=== PATIENT | male | born 1935 | race Caucasian/White ===

== ENCOUNTER 2016-10-20 12:13 | Emergency (ER) | payer MEDICARE, BC ==
--- NOTE | ~2016-10-20 | CT2 ---
[facility] A Service of [facility] & [facility] RADIOLOGY TEXT RESULTS PATIENT: BERTHA TREJO LOCATION: SED : 31 UNIT #: [id number] AGE: [address]: Cornel Love MD SEX: M ORDER DR: [id number] [place] [id number] E MR#: [id number] #: [id number] NAME: BERTHA TREJO. : 1935 SEX: M STUDY DATE/TIME: 10/20/2016 12:42 UNIT: SED ROOM: STUDY DESCRIPTION: CT Abd and Pelv W Cont Attending Physician: Cornel Love M.D. Ordering Physician: Cornel Love M.D. Primary Care Physician: Lake Oates M.D. MEDICAL IMAGING REPORT This report is preliminary unless electronic signature is present. EXAM CT abdomen and pelvis with IV contrast, 10/20/2016 COMPARISON August 12, 2014 INDICATION 80-year-old male with upper abdominal pain for 2 weeks, now getting worse. TECHNIQUE This CT exam was performed with one or more of the following radiation dose reduction techniques: automatic exposure control, adjustment of mA and/or kV according to patient size, and iterative reconstruction. FINDINGS Axial CT imaging of the abdomen and pelvis was performed after IV administration of 100 mL Isovue-370. Coronal and sagittal reformats were constructed. Diffuse osteopenia. Multilevel degenerative disc disease of the lumbar spine. No acute fractures or suspicious osseous lesions. Moderate to severe degenerative endplate change seen at L2-L3. Stable vertebral body height loss at L4. There is minimal grade 1 degenerative retrolisthesis of L2 on L3 and degenerative anterolisthesis grade 1 of L4 on L5. There is a moderate to large posterior disc protrusion at L4-L5. There is marked scoliosis of the lumbar spine with dextrocurvature centered at L2-L3. Calcified granuloma in the right middle lobe. Low density lesion measuring up to 1 cm in the left hepatic lobe with multiple other stable low-density lesions throughout the liver, most in keeping with benign cysts or hemangiomas. There are calcified granulomas in the liver and spleen. There are also tiny low-density lesions within the spleen which are too small to characterize and may reflect cysts or possibly noncalcified granulomas. Patient is post cholecystectomy. There is atrophy of the pancreas. Adrenal glands are unremarkable. Kidneys are STS. [facility] A Service of [facility] & [facility] RADIOLOGY TEXT RESULTS PATIENT: BERTHA TREJO LOCATION: [facility] [place] 33 UNIT #: [id number] AGE: [address]: Cornel Love MD SEX: M ORDER DR: within normal limits. There is nonspecific bilateral perinephric stranding, not significantly changed from August 12, 2014. There actually is an exophytic lesion extending from the mid pole of the left kidney with borderline density measuring up to 1.1 cm, stable from August 12, 2014 favoring a benign proteinaceous cyst. There is no hydronephrosis or hydroureter. No renal or ureteral calculi. There is prostatic enlargement with a transverse diameter of 5.1 cm. There is mild diffuse thickening of the urinary bladder wall, perhaps due to under distension or chronic bladder outlet obstruction. Correlation to exclude signs of an acute cystitis recommended. There is marked diverticulosis of the sigmoid colon. Appendix is normal. There is no evidence of bowel obstruction. No evidence of acute diverticulitis. No free fluid or pneumoperitoneum. No adenopathy in the abdomen or pelvis. There is normal caliber of the abdominal aorta. There are dense calcifications involving the origins of the celiac and superior mesenteric arteries as well as calcifications of the proximal renal arteries. There may be mild stenosis at the origin of superior mesenteric artery and evaluation for stenosis at the origin of the celiac artery is limited by bulky calcification. There is likely at least mild stenosis at the origin of the left renal artery which is patent distally and there is likely at least mild stenosis at the origin of the right renal artery which is also patent distally. Calcifications extend in the bilateral iliac arteries and femoral arteries. There is ectasia of the infrarenal abdominal aorta without aneurysm. IMPRESSION 1. No acute abnormality in the abdomen, pelvis or lower chest. 2. Patient is post cholecystectomy. 3. Degenerative changes of the lumbar spine, grossly stable from 2014. 4. Exophytic 1.1 cm density in the left kidney which is indeterminate based on its density but is stable from 2014 and favors a proteinaceous cyst. 5. Prostatic hypertrophy. There is thickening of the urinary bladder wall which is not significantly changed from 2015 favoring either under distension or possibly sequela of mild chronic bladder outlet obstruction.Regarding the bladder, correlation to exclude signs of acute cystitis is recommended which if thought to be less likely. 6. Diffuse arterial calcification of the abdomen and pelvis which are likely causing at least mild stenosis at the origins of the celiac, superior mesenteric and bilateral renal arteries. 7. Multiple low density lesions throughout the liver are stable from 2015 favoring either benign cysts or hemangiomas. Dictated by... Jaime Perera M.D. [facility] A Service of [facility] RADIOLOGY TEXT RESULTS PATIENT: BERTHA TREJO LOCATION: [facility] [place] : 33 UNIT #: [id number] AGE: [address]: Cornel Love MD SEX: M ORDER DR: THIS IS AN ELECTRONICALLY VERIFIED REPORT Jaime Perera M.D. at 10/24/2016 11:11 AM Gabino TD: 10/21/2016 04:39 JOB #: [id number] MEDICAL IMAGING REPORT Page 1 of 1
[2016-10-20 11:53] LABS: POC - CKMB <1.0 ng/mL (0.0-7.9); POC - MYOGLOBIN 94.8 ng/mL (0.0-169.0); POC - TROPONIN <0.05 ng/mL (<=0.05)
[2016-10-20 11:54] LABS: BASOPHIL% 0.4 % (0-2.5); EOSINOPHIL# 0.1 X10e3 (0-0.7); EOSINOPHIL% 2.4 % (0.0-7.0); HEMATOCRIT 35.7 % (38.0-50.0); HEMOGLOBIN 11.6 gm/dL (13.0-16.0); LYMPHOCYTE# 1.1 X10e3 (1.0-3.5); LYMPHOCYTE% 17.5 % (17.0-45.0); MEAN CELL VOLUME 88.3 FL (83-96); MEAN CORPUSCULAR HEMOGLOBIN 28.7 PG (28-34); MEAN CORPUSCULAR HGB CONC 32.5 g/dL (30-36); MONOCYTE# 0.6 X10e3 (0-1.0); NEUTROPHIL# 4.3 X10e3 (1.5-7.1); NEUTROPHIL% 69.7 % (40-75); PLATELET COUNT 204 X10e3 (140-420); RED BLOOD COUNT 4.04 X10e (3.90-5.60); RED CELL DISTRIBUTION WIDTH 15.3 % (11.0-15.5); WHITE BLOOD COUNT 6.2 X10e3 (4.0-10.5)
[2016-10-20 11:56] LABS: DIFF IND NO
[2016-10-20 12:10] LABS: ALBUMIN SERUM 3.7 g/dL (3.5-5.0); BILIRUBIN, DIRECT 0.2 mg/dL (0.0-0.2); BILIRUBIN,INDIRECT 0.8 mg/dL (0.0-0.9); BUN/CREATININE RATIO 15.55; CALCIUM SERUM 8.9 mg/dL (8.4-10.2); CREATININE SERUM 0.9 mg/dL (0.6-1.4); GLOM FILT RATE Estimated 79.3 mL/min (>60)
[~2016-10-20 12:13] MED LIST: ACETAMINOPHEN PO; AMIODARONE PO; ASPIRIN EC81 M1 PO; ASPIRIN PO; BUSPAR15 M1 PO; BUSPIRONE HCL7.5 MG PO; CALTRATE 600+D PO; CARTIA XT PO; CENTRUM SILVER1 EAC2 PO; CERTAGEN PO; CORDARONE200 M1 PO; COUMADIN PO; COUMADIN5 MG PO; COZAAR PO; DILTIAZEM 24HR180 M1 PO; DIOVAN HCT 80/11 TAB PO; ELIQUIS5 MG PO; FLOMAX0.4 M1 PO; FLOMAX0.4 MG PO; KEFLEX500 MG PO; LEVAQUIN PO; LEVOTHYROXINE100 MC1 PO; LIPITOR PO; LIPITOR20 MG PO; LOPRESSOR PO; LOSARTAN POTASS50 MG PO; LOVENOX; LOW DOSE ASPIRI81 M1 PO; METOPROLOL TAR25 MG PO; MULTI VITAMIN1 EACH PO; MULTI-VITAMIN1 TAB PO; PACERONE PO; PANTOPRAZOLE SO40 MG PO; PROBIOTIC1 EAC1 PO; PROTONIX PO; PULMICORT200 MCG/AE INH; RYTHMOL PO; STOOL SOFTENER100 M1 PO; SYNTHROID0.1 MG PO; TOPROL XL PO; TYLENOL PM PO; VITAMIN D-32000 UNI1 PO; ZANTAC PO; ZOCOR PO
[2016-10-20 12:47] LABS: URINE SOURCE CLEAN CATCH
[2016-10-20 12:48] LABS: URINE APPEARANCE CLEAR; URINE BILIRUBIN NEG (NEG); URINE BLOOD TRACE-INTACT (NEG); URINE COLOR YELLOW; URINE GLUCOSE NEG (NORM); URINE KETONE NEG (NEG); URINE LEUKOCYTE ESTERASE NEG (NEG); URINE NITRATE NEG (NEG); URINE PROTEIN NEG (NEG); URINE UROBILINOGEN 0.2 MG/DL (NORM)
[2016-10-20 12:51] LABS: MICRO INDICATED? YES
[2016-10-20 13:16] LABS: URINE BACTERIA NEG (NEG); URINE RBC 0-2 /[HPF] (0-2); URINE WBC 0-2 /[HPF] (0-5)
[2016-10-20 13:17] LABS: CULTURE INDICATED? NO
== END 2016-10-20 15:48 | disposition home or self-care (01) ==
LOC: SED 12:13
PROVIDERS: Emergency Medicine
DX: K29.00 Acute gastritis without bleeding (principal); I48.91 Unspecified atrial fibrillation; I10 Essential (primary) hypertension; Z85.828 Personal history of other malignant neoplasm of skin; Z79.899 Other long term (current) drug therapy; Z79.82 Long term (current) use of aspirin; Z88.4 Allergy status to anesthetic agent; Z88.8 Allergy status to other drugs, medicaments and biological substances
CPT/HCPCS: 36415; 74177; 80048; 80076; 81003; 82553; 83690; 83874; 84484; 85025; 86677; 96361; 96374; 96375; 99284; J2270; J2405; J2765; Q9967